=== PATIENT | male | born 1950 | race Caucasian/White ===

== ENCOUNTER 2016-09-22 08:16 | Observation (INO) | payer MEDICARE, OTHER ==
[2016-09-22] MEDS ORDERED: Ondansetron 4 MG/2 ML SDV IVPUSH ONE (09:01)
[2016-09-22] MEDS ORDERED: HYDROmorphone 0.5 MG/0.5 ML Syringe IVPUSH ONE (09:02)
--- NOTE | 2016-09-22 09:05 | EDM.PDOC ---
ED HPI GI/ABDOMINAL - General Chief Complaint: Abdominal Pain Stated Complaint: SEVER STOMACH PAIN AND BACK PAIN Time Seen by Provider: 09/22/16 09:03 Source: Reports: Patient, Family History Limitations: Reports: No limitations - History of Present Illness INITIAL COMMENTS - FREE TEXT/NARRATIVE: pt has been sick for about 1 week. He has been weaker and he has not been eating well. He developed the acute abdomanal pain about 3 am. He was nauseated and did vomit a couple of times. He normally has loose stools. He is rating his pain at a 5 at this time. Timing/Duration: Reports: Hour(s):, Improving Location: other (epigastric area.) Quality: Reports: fullness, stabbing, throbbing Associated Symptoms: Reports: diarrhea, loss of appetite - Related Data Allergies/ADRs: Allergies Allergy/AdvReac Type Severity Reaction Status Date / Time lisinopril Allergy Cough Verified 09/22/16 08:45 Home Meds: Home Meds Cyanocobalamin (Vitamin B12) [Vitamin B12] 1,000 mcg PO DAILY 09/22/16 [History] Dapsone 75 mg PO DAILY 09/22/16 [History] Insulin Isophane NPH, Human [HumuLIN N] 8 units SUBCUT ASDIRECTED 09/22/16 [ History] Lipase/Protease/Amylase [Zenpep Dr 40,000 Units Capsule] 68,000 units PO ASDIRECTED 09/22/16 [History] Losartan/Hydrochlorothiazide [Losartan-HCTZ 100-12.5 MG] 1 tab PO DAILY [History] Omeprazole 20 mg PO DAILY 09/22/16 [History] metFORMIN [Glucophage] 500 mg PO BIDMEALS 09/22/16 [History] Past Medical History Respiratory History: Reports: Asthma Gastrointestinal History: Reports: Celiac disease Endocrine/Metabolic History: Reports: Diabetes, type II Hematologic History: Reports: B12 deficiency - Infectious Disease History Infectious Disease History: Reports: Chicken pox, Measles, Mumps - Past Surgical History GI Surgical History: Reports: Other (see below) Other GI Surgeries/Procedures: whipple procedure Musculoskeletal Surgical History: Reports: Shoulder surgery Social & Family History - Tobacco Use Smoking Status *Q: Never Smoker - Caffeine Use Caffeine Use: Reports: None - Recreational Drug Use Recreational Drug Use: No ED ROS GENERAL - Review of Systems Review Of Systems: See Below Constitutional: Reports: decreased appetite, other (pt had a whipple for a large pancreatic cyst about 3 years ago. After the whipple he developed celiac disease and type 2 diabetes/ ) HEENT: Reports: No symptoms Respiratory: Reports: No Symptoms Cardiovascular: Reports: No symptoms Endocrine: Reports: fatigue GI/Abdominal: Reports: Abdominal pain, Decreased appetite : Reports: no symptoms Musculoskeletal: Reports: no symptoms Skin: Reports: no symptoms Neurological: Reports: No Symptoms Psychiatric: Reports: No symptoms ED EXAM, GI/ABD - Physical Exam Exam: See Below Text/Narrative:: pt is a post whipple procedure of 3 years for a large cyst in the pancreas. He developed acute mid upper abdomanal pain about 3 am. He vomited a couple of times. He has not been feeling well for 1-2 weeks. Exam Limited By: Other (pt is pale and appears mildly jaundiced.) General Appearance: alert, moderate distress Eyes: bilateral: normal appearance, EOMI Ears: normal TMs Nose: normal inspection Throat/Mouth: Normal inspection Head: atraumatic Neck: normal inspection Respiratory/Chest: no respiratory distress Cardiovascular: regular rate, rhythm GI/Abdominal: tenderness, other (pt has tenderness in the epigastric area. He has a soft abdoman otherwise. ) (Male) Exam: Deferred Rectal (Males) Exam: Deferred Back Exam: normal inspection Extremities: normal inspection Neurological: alert, oriented, normal cognition Psychiatric: normal affect Course - Vital Signs Last Recorded V/S: Last Vital Signs Temp 37.3 C 09/22/16 08:39 Pulse 85 09/22/16 15:14 Resp 16 09/22/16 08:39 BP 118/51 L 09/22/16 15:14 Pulse Ox 92 L 09/22/16 15:14 - Orders/Labs/Meds Orders: Active Orders 24 hr Category Date Time Status Iopamidol [Isovue-300 (61%)] Med 09/22/16 10:33 Active 100 ml IV . DIRECTED PRN Sodium Chloride 0.9% [Normal Saline] 1,000 ml Med 09/22/16 09:15 Active IV ASDIRECTED Sodium Chloride 0.9% [Normal Saline] 1,000 ml Med 09/22/16 15:45 Ordered IV ASDIRECTED Sodium Chloride 0.9% [Normal Saline] 75 ml Med 09/22/16 10:45 Active IV ASDIRECTED Sodium Chloride 0.9% [Saline Flush] Med 09/22/16 10:33 Active 10 ml FLUSH ONETIME PRN Medication Orders Sodium Chloride (Normal Saline) 1,000 mls @ 500 mls/hr IV ASDIRECTED TRES Last Admin: 09/22/16 09:12 Dose: 500 mls/hr Sodium Chloride (Normal Saline) 75 mls @ 3 mls/sec IV ASDIRECTED TRES Stop: 09/22/16 23:00 Sodium Chloride (Normal Saline) 1,000 mls @ 150 mls/hr IV ASDIRECTED TRES Iopamidol (Isovue-300 (61%)) 100 ml IV . DIRECTED PRN PRN Reason: RADIOLOGY EXAM Stop: 09/23/16 10:34 Sodium Chloride (Saline Flush) 10 ml FLUSH ONETIME PRN PRN Reason: per radiology protocol Stop: 09/22/16 23:00 Labs: Laboratory Tests 09/22/16 09/22/16 09/22/16 Range/Units 08:34 08:46 08:46 WBC 6.8 (4.5-11.0) K/uL RBC 3.16 L (4.30-5.90) M/uL Hgb 10.0 L (12.0-15.0) g/dL Hct 30.9 L (40.0-54.0) % MCV 98 (80-98) fL MCH 32 H (27-31) pg MCHC 32 (32-36) % Plt Count 271 (150-400) K/uL Neut % (Auto) 93 H (36-66) % Lymph % (Auto) 5 L (24-44) % [place] % (Auto) 2 (2-6) % Eos % (Auto) 0 L (2-4) % Baso % (Auto) 0 (0-1) % ESR (0-20) mm/hr Sodium 133 L (140-148) mmol/L Potassium 4.0 (3.6-5.2) mmol/L Chloride 99 L (100-108) mmol/L Carbon Dioxide 27 (21-32) mmol/L Anion Gap 11.0 (5.0-14.0) mmol/L BUN 26 H (7-18) mg/dL Creatinine 1.4 H (0.8-1.3) mg/dL Est Cr Clr Drug Dosing 47.21 mL/min Estimated GFR (MDRD) 50 L (>60) Glucose 235 H (74-106) mg/dL Calcium 8.1 L (8.5-10.1) mg/dL Iron (65-175) ug/dL TIBC (250-450) ug/dl % Saturation (20-55) % Total Bilirubin 3.3 H (0.2-1.0) mg/dL AST 553 H (15-37) U/L ALT 457 H (12-78) U/L Alkaline Phosphatase 454 H (46-116) U/L Total Protein 6.6 (6.4-8.2) g/dL Albumin 3.3 L (3.4-5.0) g/dL Globulin 3.3 (2.3-3.5) g/dL Albumin/Globulin Ratio 1.0 L (1.2-2.2) Amylase 36 (25-115) U/L Lipase 35 L (73-393) U/L Urine Color Urine Appearance Urine pH (4.5-8.0) Ur Specific [place] (1.008-1.030) Urine Protein (NEGATIVE) mg/dL Urine Glucose (UA) (NEGATIVE) mg/dL Urine Ketones (NEGATIVE) mg/dL Urine Occult Blood (NEGATIVE) Urine Nitrite (NEGAITVE) Urine Bilirubin (NEGATIVE) Urine Urobilinogen (NORMAL) mg/dL Ur Leukocyte Esterase (NEGATIVE) Urine RBC (0-5) Urine WBC (0-5) Ur Epithelial Cells Amorphous Sediment Urine Bacteria Urine Mucus Urine Other 09/22/16 09/22/16 09/22/16 Range/Units 09:02 09:06 10:35 WBC (4.5-11.0) K/uL RBC (4.30-5.90) M/uL Hgb (12.0-15.0) g/dL Hct (40.0-54.0) % MCV (80-98) fL MCH (27-31) pg MCHC (32-36) % Plt Count (150-400) K/uL Neut % (Auto) (36-66) % Lymph % (Auto) (24-44) % [place] % (Auto) (2-6) % Eos % (Auto) (2-4) % Baso % (Auto) (0-1) % ESR 26 H (0-20) mm/hr Sodium (140-148) mmol/L Potassium (3.6-5.2) mmol/L Chloride (100-108) mmol/L Carbon Dioxide (21-32) mmol/L Anion Gap (5.0-14.0) mmol/L BUN (7-18) mg/dL Creatinine (0.8-1.3) mg/dL Est Cr Clr Drug Dosing mL/min Estimated GFR (MDRD) (>60) Glucose (74-106) mg/dL Calcium (8.5-10.1) mg/dL Iron 79 (65-175) ug/dL TIBC 310 (250-450) ug/dl % Saturation 25 (20-55) % Total Bilirubin (0.2-1.0) mg/dL AST (15-37) U/L ALT (12-78) U/L Alkaline Phosphatase (46-116) U/L Total Protein (6.4-8.2) g/dL Albumin (3.4-5.0) g/dL Globulin (2.3-3.5) g/dL Albumin/Globulin Ratio (1.2-2.2) Amylase (25-115) U/L Lipase (73-393) U/L Urine Color Brown Urine Appearance Cloudy Urine pH 5.0 (4.5-8.0) Ur Specific [place] 1.010 (1.008-1.030) Urine Protein Negative (NEGATIVE) mg/dL Urine Glucose (UA) Normal (NEGATIVE) mg/dL Urine Ketones Negative (NEGATIVE) mg/dL Urine Occult Blood Negative (NEGATIVE) Urine Nitrite Negative (NEGAITVE) Urine Bilirubin Moderate (NEGATIVE) Urine Urobilinogen >=12 H (NORMAL) mg/dL Ur Leukocyte Esterase Small (NEGATIVE) Urine RBC Not seen (0-5) Urine WBC 0-5 (0-5) Ur Epithelial Cells Rare Amorphous Sediment Moderate Urine Bacteria Rare Urine Mucus Moderate Urine Other See note Meds: Medications Generic Name Dose Route Start Last Admin Trade Name Freq PRN Reason Stop Dose Admin Sodium Chloride 1,000 mls @ 500 mls/hr 09/22/16 09:15 09/22/16 09:12 Normal Saline IV 500 mls/hr ASDIRECTED TRES Administration Sodium Chloride 75 mls @ 3 mls/sec 09/22/16 10:45 Normal Saline IV 09/22/16 23:00 ASDIRECTED TRES Sodium Chloride 1,000 mls @ 150 mls/hr 09/22/16 15:45 Normal Saline IV ASDIRECTED TRES Iopamidol 100 ml 09/22/16 10:33 Isovue-300 (61%) IV 09/23/16 10:34 . DIRECTED PRN RADIOLOGY EXAM Sodium Chloride 10 ml 09/22/16 10:33 Saline Flush FLUSH 09/22/16 23:00 ONETIME PRN per radiology protocol Discontinued Medications Generic Name Dose Route Start Last Admin Trade Name Freq PRN Reason Stop Dose Admin Hydromorphone HCl 0.5 mg 09/22/16 09:02 09/22/16 09:13 Dilaudid IVPUSH 09/22/16 09:03 0.5 mg ONETIME ONE Administration Ondansetron HCl 4 mg 09/22/16 09:01 09/22/16 09:12 Zofran IVPUSH 09/22/16 09:02 4 mg ONETIME ONE Administration - Re-Assessments/Exams Free Text/Narrative Re-Assessment/Exam: 09/22/16 15:19 pt had a US which did not reveal the presence of a GB. The duct did not look wide on the US. He had a Cat scan of the abdoman which did not reveal a stone or wide duct, It also did not show GB present. Because of the jaundice He had a MRCP which did not show a definite stone or other abnormalities. 09/22/16 15:43 pt remains pain free at this time. Departure - Departure Time of Disposition: 15:22 Disposition: Admitted As Inpatient 64 Condition: fair Clinical Impression: Elevated liver enzymes, Jaundice, Anemia Referrals: PCP,None [Primary Care Provider] - Forms: ED Department Discharge Care Plan Goals: admit to Dr reeves - My Orders Last 24 Hours: My Active Orders 09/22/16 09:15 Sodium Chloride 0.9% [Normal Saline] 1,000 ml IV ASDIRECTED 09/22/16 10:33 Iopamidol [Isovue-300 (61%)] 100 ml IV . DIRECTED PRN Sodium Chloride 0.9% [Saline Flush] 10 ml FLUSH ONETIME PRN 09/22/16 10:45 Sodium Chloride 0.9% [Normal Saline] 75 ml IV ASDIRECTED 09/22/16 15:45 Sodium Chloride 0.9% [Normal Saline] 1,000 ml IV ASDIRECTED - Assessment/Plan Last 24 Hours: My Active Orders 09/22/16 09:15 Sodium Chloride 0.9% [Normal Saline] 1,000 ml IV ASDIRECTED 09/22/16 10:33 Iopamidol [Isovue-300 (61%)] 100 ml IV . DIRECTED PRN Sodium Chloride 0.9% [Saline Flush] 10 ml FLUSH ONETIME PRN 09/22/16 10:45 Sodium Chloride 0.9% [Normal Saline] 75 ml IV ASDIRECTED 09/22/16 15:45 Sodium Chloride 0.9% [Normal Saline] 1,000 ml IV ASDIRECTED
[2016-09-22] MEDS ORDERED: Sodium Chloride 0.9% 1,000 ML IV SCH ×2 (09:15→15:45)
--- NOTE | 2016-09-22 10:23 | US ---
Right upper quadrant ultrasound The liver is homogeneous. No focal hepatic lesions are demonstrated. The gallbladder is not distende d. It is difficult to differentiate a collapsed gallbladder with stones versus air within the bowel. There is no pain elicited with palpation of the right upper quadrant. The common bile duct is mildl y prominent measuring 9-10 mm. No ductal stones are seen. The pancreas is completely obscured by bow el gas. The right kidney measures 10.9 cm in length. There is no hydronephrosis. The IVC is patent. Impression: 1. Nonvisualization of the gallbladder as well as pancreas. There is likely inadequate fasting. Gall stones cannot be excluded. No pain with palpation of the gallbladder. 2. Mild common bile duct distention.
[2016-09-22] MEDS ORDERED: Iopamidol 612 MG/ML 100 ML Bottle IV PRN (10:33)
[2016-09-22] MEDS ORDERED: Sodium Chloride 0.9% 10 ML Syringe FLUSH PRN (10:33)
[2016-09-22] MEDS ORDERED: Sodium Chloride 0.9% 75 ML IV SCH (10:45)
--- NOTE | 2016-09-22 11:20 | CT ---
Abdomen pelvis CT. History: Abdominal pain. Elevated liver enzymes. Prior Whipple procedure. Technique: IV contrast was administered followed by axial imaging from the lung bases extending thro ugh the abdomen and pelvis. Coronal images were reconstructed. Total DLP: 607. Findings: Limited evaluation of the lower lung gannon demonstrates no abnormalities. The gallbladder is absent. The common bile duct is nondistended measuring 12 mm. There is mild promi nence of the intrahepatic ducts. The findings are likely within normal limits following cholecystect betty. No focal hepatic lesions are demonstrated. The remaining portion of the pancreas is atrophic. T here is mild prominence of the pancreatic duct. The spleen is normal in size. The adrenal glands are symmetric. The kidneys demonstrate symmetric excretion of contrast. There is a small cyst of the lo wer pole right kidney. There is no large or small bowel distention. There is moderate stool in the distal colon. There is n o abdominal or pelvic adenopathy. There is no ascites. The skeletal structures are unremarkable. Impression: 1. Prior Whipple procedure. Atrophy of the pancreas is noted. 2. Prior cholecystectomy. Mild prominence of the bile ducts. 3. No acute findings of the abdomen or pelvis.
--- NOTE | 2016-09-22 15:06 | MR ---
MRCP. History: Jaundice. Technique: Routine MRCP sequences. Findings: The liver is homogeneous. The liver is normal in size. There is normal signal throughout t he liver. The gallbladder is surgically absent. The common bile duct measures 8 mm in diameter. There are post surgical changes consistent with a Whipple procedure. There is atrophy of the pancreas. The pancreat ic duct is dilated measuring 8-9 mm. There is no adenopathy. There is no free fluid. There are small cysts of the kidneys. Impression: 1. Postsurgical changes consistent with prior Whipple procedure. 2. Diffuse atrophy of the pancreas. There is dilatation of the pancreatic duct. No mass is seen. 3. Prior cholecystectomy. There is no dilatation of the common bile duct.
--- NOTE | 2016-09-22 16:34 | PCM.HP ---
H&P History of Present Illness - General Date of Service: 09/22/16 Admit Problem/Dx: Admission Diagnosis/Problem Admission Diagnosis/Problem Abdominal pain Source of Information: Patient, Family, Provider History Limitations: Reports: No limitations - History of Present Illness Initial Comments - Free Text/Narative: Chayito presents to the emergency room today after an episode of severe epigastric/ right upper cord abdominal pain that woke him from sleep around 2 AM. This was a crampy pain that came and went in waves without an obvious trigger. He did take some ibuprofen at home but this did not help his pain. He did have one episode of vomiting and some nausea this morning. When the pain persisted and was accompanied by the nausea and vomiting he thought he better get it checked out. He has not felt very well for the past week with a decrease in his appetite and energy. He has had some chills but none in the last few days. No obvious sick contacts. No change in bowel function. No change in bladder habits. No cough or shortness of breath. No new medications her medication changes. Workup in the emergency room revealed elevated bilirubin, alkaline phosphatase as well as AST and ALT. This prompted a right upper quadrant ultrasound which was normal which prompted a CT which showed evidence for previous Whipple procedure but no acute findings. An MRI was completed with MRCP protocol. This did not show acute pathology either. Planning admit for observation and repeat testing. Middle Abdomen Pain Score (Numeric/FACES): 8 - Related Data Allergies/Adverse Reactions: Allergies Allergy/AdvReac Type Severity Reaction Status Date / Time lisinopril AdvReac Cough Verified 09/22/16 17:05 Home Medications: Home Meds Cyanocobalamin (Vitamin B12) [Vitamin B12] 1,000 mcg PO DAILY 09/22/16 [History] Dapsone 75 mg PO DAILY 09/22/16 [History] Insulin Isophane NPH, Human [HumuLIN N] 8 units SUBCUT ASDIRECTED 09/22/16 [ History] Lipase/Protease/Amylase [Zenpep Dr 40,000 Units Capsule] 60,000 units PO TID [History] Losartan/Hydrochlorothiazide [Losartan-HCTZ 100-25 MG] 1 tab PO DAILY 09/22/16 [ History] Omeprazole 20 mg PO BID 09/22/16 [History] metFORMIN [Glucophage] 500 mg PO BIDMEALS 09/22/16 [History] Past Medical History Respiratory History: Reports: Asthma Gastrointestinal History: Reports: Celiac disease Endocrine/Metabolic History: Reports: Diabetes, type II Hematologic History: Reports: B12 deficiency - Infectious Disease History Infectious Disease History: Reports: Chicken pox, Measles, Mumps - Past Surgical History GI Surgical History: Reports: Other (see below) Other GI Surgeries/Procedures: whipple procedure Musculoskeletal Surgical History: Reports: Shoulder surgery Social & Family History - Family History Oncologic: Denies: Pancreatic - Tobacco Use Smoking Status *Q: Never Smoker - Caffeine Use Caffeine Use: Reports: None - Alcohol Use Alcohol Use History: No - Recreational Drug Use Recreational Drug Use: No H&P Review of Systems - Review of Systems: Review Of Systems: See Below Free Text/Narrative: A complete 12 point review of systems was obtained. Pertinent positives and negatives are noted in the history of present illness. All other systems were reviewed and were negative except as noted. Exam - Exam Exam: See Below - Vital Signs Vital Signs: Last Vital Signs Temp 37.3 C 09/22/16 08:39 Pulse 85 09/22/16 15:14 Resp 16 09/22/16 08:39 BP 118/51 L 09/22/16 15:14 Pulse Ox 92 L 09/22/16 15:14 Weight: 77.111 kg - Exam Quality Assessment: No: supplemental oxygen General: alert, oriented, cooperative. No: mild distress HEENT: Conjunctiva clear, Mucosa moist & pink, Scleral icterus Neck: supple, trachea midline. No: lymphadenopathy, thyromegaly Lungs: Clear to auscultation, Normal respiratory effort Cardiovascular: regular rate, regular rhythm, normal S1, normal S2 Abdomen: normal bowel sounds, soft. No: distention, tenderness, mass Back Exam: normal inspection, full range of motion Extremities: normal inspection, normal pulses. No: cyanosis, edema Skin: warm, dry, intact Neuro Extensive - Mental Status: alert, oriented x3, nl response to commands Neuro Extensive - Motor, Sensory, Reflexes: CN II-XII intact. No: dysarthria, abnormal motor, tremor Psychiatric: alert, normal affect - Patient Data Lab Results last 24 hrs: Laboratory Results - last 24 hr 09/22/16 09/22/16 09/22/16 Range/Units 08:34 08:46 08:46 WBC 6.8 (4.5-11.0) K/uL RBC 3.16 L (4.30-5.90) M/uL Hgb 10.0 L (12.0-15.0) g/dL Hct 30.9 L (40.0-54.0) % MCV 98 (80-98) fL MCH 32 H (27-31) pg MCHC 32 (32-36) % Plt Count 271 (150-400) K/uL Neut % (Auto) 93 H (36-66) % Lymph % (Auto) 5 L (24-44) % Branch % (Auto) 2 (2-6) % Eos % (Auto) 0 L (2-4) % Baso % (Auto) 0 (0-1) % ESR (0-20) mm/hr Sodium 133 L (140-148) mmol/L Potassium 4.0 (3.6-5.2) mmol/L Chloride 99 L (100-108) mmol/L Carbon Dioxide 27 (21-32) mmol/L Anion Gap 11.0 (5.0-14.0) mmol/L BUN 26 H (7-18) mg/dL Creatinine 1.4 H (0.8-1.3) mg/dL Est Cr Clr Drug Dosing 47.21 mL/min Estimated GFR (MDRD) 50 L (>60) Glucose 235 H (74-106) mg/dL Calcium 8.1 L (8.5-10.1) mg/dL Iron (65-175) ug/dL TIBC (250-450) ug/dl % Saturation (20-55) % Total Bilirubin 3.3 H (0.2-1.0) mg/dL AST 553 H (15-37) U/L ALT 457 H (12-78) U/L Alkaline Phosphatase 454 H (46-116) U/L Total Protein 6.6 (6.4-8.2) g/dL Albumin 3.3 L (3.4-5.0) g/dL Globulin 3.3 (2.3-3.5) g/dL Albumin/Globulin Ratio 1.0 L (1.2-2.2) Amylase 36 (25-115) U/L Lipase 35 L (73-393) U/L Urine Color Urine Appearance Urine pH (4.5-8.0) Ur Specific [place] (1.008-1.030) Urine Protein (NEGATIVE) mg/dL Urine Glucose (UA) (NEGATIVE) mg/dL Urine Ketones (NEGATIVE) mg/dL Urine Occult Blood (NEGATIVE) Urine Nitrite (NEGAITVE) Urine Bilirubin (NEGATIVE) Urine Urobilinogen (NORMAL) mg/dL Ur Leukocyte Esterase (NEGATIVE) Urine RBC (0-5) Urine WBC (0-5) Ur Epithelial Cells Amorphous Sediment Urine Bacteria Urine Mucus Urine Other 09/22/16 09/22/16 09/22/16 Range/Units 09:02 09:06 10:35 WBC (4.5-11.0) K/uL RBC (4.30-5.90) M/uL Hgb (12.0-15.0) g/dL Hct (40.0-54.0) % MCV (80-98) fL MCH (27-31) pg MCHC (32-36) % Plt Count (150-400) K/uL Neut % (Auto) (36-66) % Lymph % (Auto) (24-44) % Branch % (Auto) (2-6) % Eos % (Auto) (2-4) % Baso % (Auto) (0-1) % ESR 26 H (0-20) mm/hr Sodium (140-148) mmol/L Potassium (3.6-5.2) mmol/L Chloride (100-108) mmol/L Carbon Dioxide (21-32) mmol/L Anion Gap (5.0-14.0) mmol/L BUN (7-18) mg/dL Creatinine (0.8-1.3) mg/dL Est Cr Clr Drug Dosing mL/min Estimated GFR (MDRD) (>60) Glucose (74-106) mg/dL Calcium (8.5-10.1) mg/dL Iron 79 (65-175) ug/dL TIBC 310 (250-450) ug/dl % Saturation 25 (20-55) % Total Bilirubin (0.2-1.0) mg/dL AST (15-37) U/L ALT (12-78) U/L Alkaline Phosphatase (46-116) U/L Total Protein (6.4-8.2) g/dL Albumin (3.4-5.0) g/dL Globulin (2.3-3.5) g/dL Albumin/Globulin Ratio (1.2-2.2) Amylase (25-115) U/L Lipase (73-393) U/L Urine Color Brown Urine Appearance Cloudy Urine pH 5.0 (4.5-8.0) Ur Specific [place] 1.010 (1.008-1.030) Urine Protein Negative (NEGATIVE) mg/dL Urine Glucose (UA) Normal (NEGATIVE) mg/dL Urine Ketones Negative (NEGATIVE) mg/dL Urine Occult Blood Negative (NEGATIVE) Urine Nitrite Negative (NEGAITVE) Urine Bilirubin Moderate (NEGATIVE) Urine Urobilinogen >=12 H (NORMAL) mg/dL Ur Leukocyte Esterase Small (NEGATIVE) Urine RBC Not seen (0-5) Urine WBC 0-5 (0-5) Ur Epithelial Cells Rare Amorphous Sediment Moderate Urine Bacteria Rare Urine Mucus Moderate Urine Other See note Result Diagrams: 09/22/16 08:34 09/22/16 08:46 Imaging Impressions last 24 hrs: CT scan of the abdomen and pelvis - these images were personally reviewed - status post Whipple procedure, status post cholecystectomy. Pancreas is atrophied. No evidence for abscess, infection or acute process. Right upper quadrant ultrasound - similar to CT scan, no acute findings MRCP - no visible stone or significant ductal dilation other than mild dilation of the pancreatic duct. *Q Meaningful Use (ADM) - VTE *Q VTE Criteria *Q: - Stroke *Q Stroke Criteria *Q: - AMI *Q AMI Criteria *Q: - Problem List (1) Right upper quadrant abdominal pain SNOMED Code(s): 742014121 ICD Code: R10.11 - RIGHT UPPER QUADRANT PAIN Status: Acute Current Visit : Yes (2) Transaminitis SNOMED Code(s): 459431476 ICD Code: R74.0 - NONSPEC ELEV OF LEVELS OF TRANSAMNS & LACTIC ACID DEHYDRGNSE Status: Acute Current Visit: Yes (3) Jaundice SNOMED Code(s): 57427850 ICD Code: R17 - UNSPECIFIED JAUNDICE Status: Acute Current Visit: Yes Problem List Initiated/Reviewed/Updated: Yes Orders Last 24hrs: Active Orders 24 hr Category Date Time Status Patient Status Manage Transfer [TRANSFER] Routine ADT 09/22/16 16:23 Ordered Iopamidol [Isovue-300 (61%)] Med 09/22/16 10:33 Active 100 ml IV . DIRECTED PRN Sodium Chloride 0.9% [Normal Saline] 1,000 ml Med 09/22/16 09:15 Active IV ASDIRECTED Sodium Chloride 0.9% [Normal Saline] 1,000 ml Med 09/22/16 15:45 Active IV ASDIRECTED Sodium Chloride 0.9% [Normal Saline] 75 ml Med 09/22/16 10:45 Active IV ASDIRECTED Sodium Chloride 0.9% [Saline Flush] Med 09/22/16 10:33 Active 10 ml FLUSH ONETIME PRN Resuscitation Status Routine Resus Stat 09/22/16 16:25 Ordered Medication Orders Sodium Chloride (Normal Saline) 1,000 mls @ 500 mls/hr IV ASDIRECTED TRES Last Admin: 09/22/16 09:12 Dose: 500 mls/hr Sodium Chloride (Normal Saline) 75 mls @ 3 mls/sec IV ASDIRECTED TRES Stop: 09/22/16 23:00 Sodium Chloride (Normal Saline) 1,000 mls @ 150 mls/hr IV ASDIRECTED TRES Iopamidol (Isovue-300 (61%)) 100 ml IV . DIRECTED PRN PRN Reason: RADIOLOGY EXAM Stop: 09/23/16 10:34 Sodium Chloride (Saline Flush) 10 ml FLUSH ONETIME PRN PRN Reason: per radiology protocol Stop: 09/22/16 23:00 Assessment/Plan Comment:: Assessment and plan - Right upper quadrant abdominal pain with transaminitis - patient tells a pretty good story for having passed a common duct stone. No significant elevation of pancreatic enzymes because of atrophy. Dr. does appear little dilated. Ultrasound, CT and MRI did not reveal evidence for additional stones or acute pathology. No strong evidence to suggest infection. No obvious obstructing mass or lesion based on any of the advanced imaging. No evidence for cirrhosis based on imaging. -Pain control -repeat labs in the morning Transaminitis with elevated bilirubin - Differential would include having passed a stone versus medication side effect versus occult infection. At this point historian sure sounds convincing for having passed a small stone from the biliary tree. Currently pain-free and doing well. -Symptomatic management -Labs in the morning Status post Whipple for obstructing cyst - No evidence for acute pathology based on imaging. Complicated by the development of celiac disease. 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
[2016-09-22] MEDS ORDERED: oxyCODONE 5 MG Tab PO PRN (16:57)
[2016-09-22] MEDS ORDERED: Ondansetron 4 MG Tab.DIS PO PRN (16:57)
[2016-09-22] MEDS ORDERED: HYDROmorphone 0.5 MG/0.5 ML Syringe IVPUSH PRN (16:57)
[2016-09-22] MEDS ORDERED: Polyethylene Glycol 3350 Powder 17 GM Packet PO PRN (16:57)
[2016-09-22] MEDS ORDERED: Acetaminophen 325 MG Tab PO PRN (16:57)
[2016-09-22] MEDS ORDERED: Ondansetron 4 MG/2 ML SDV IV PRN (16:57)
[2016-09-22] MEDS ORDERED: LORazepam 2 MG/ML MDV IVPUSH PRN (16:57)
[2016-09-22] MEDS ORDERED: INSULIN ISOPHANE NPH HUMAN SUBCUT SCH ×2 (16:57→21:00)
[2016-09-22] MEDS ORDERED: Non-Formulary Medication 1 Each (Metformin [Glucophage] 500 MG) PO SCH (17:00)
[2016-09-22] MEDS: PROTEASE PO SCH (18:22)
[2016-09-22] MEDS: AMYLASE PO SCH (18:22)
[2016-09-22] MEDS: LIPASE PO SCH (18:22)
[2016-09-22] MEDS: METFORMIN 500 MG PO SCH (18:23)
[2016-09-23] MEDS ORDERED: OMEPRAZOLE 20MG CAP (PTOM) PO SCH (07:30)
[2016-09-23] MEDS ORDERED: Pantoprazole 40 MG Tab.CR PO SCH (07:30)
[2016-09-23 08:04] VITALS: BP 103/66
[2016-09-23] MEDS: LIPASE PO SCH (08:26)
[2016-09-23] MEDS: PROTEASE PO SCH (08:26)
[2016-09-23] MEDS: AMYLASE PO SCH (08:26)
[2016-09-23] MEDS: METFORMIN 500 MG PO SCH (08:26)
[2016-09-23] MEDS ORDERED: Non-Formulary Medication 1 Each (Cyanocobalamin (Vitamin B12) [Vitamin B12] 1,000 MCG) PO SCH (09:00)
[2016-09-23] MEDS ORDERED: Non-Formulary Medication 1 Each (Omeprazole [Omeprazole] 20 MG) PO SCH (09:00)
[2016-09-23] MEDS ORDERED: DAPSONE 25 MG PO SCH (09:00)
[2016-09-23] MEDS ORDERED: DAPSONE 75 MG PO SCH (09:00)
[2016-09-23] MEDS ORDERED: Cyanocobalamin (Vitamin B12) 1,000 MCG Tab PO SCH (09:00)
[2016-09-23] MEDS ORDERED: HCTZ PO SCH (09:00)
[2016-09-23] MEDS ORDERED: LOSARTAN PO SCH (09:00)
[2016-09-23] MEDS ORDERED: Losartan 50 MG Tab PO SCH (09:00)
[2016-09-23] MEDS ORDERED: HUMULIN N SUBCUT SCH (09:00)
[2016-09-23] MEDS ORDERED: Hydrochlorothiazide 12.5 MG Cap PO SCH (09:00)
--- NOTE | 2016-09-23 09:38 | PCM.DCSUM1 ---
Discharge Summary - Hospital Course Brief History: 66-year-old male with a history of a Whipple procedure who presented with epigastric abdominal pain and vomiting. He was admitted for observation with laboratory studies noting elevated bilirubin, ALK, AST, ALT. - Discharge Data Discharge Date: 09/23/16 Discharge Disposition: Home, Self-Care 01 Condition: Good - Discharge Diagnosis/Problem(s) (1) Right upper quadrant abdominal pain SNOMED Code(s): 083753192 ICD Code: R10.11 - RIGHT UPPER QUADRANT PAIN Status: Acute (2) Transaminitis SNOMED Code(s): 849142678 ICD Code: R74.0 - NONSPEC ELEV OF LEVELS OF TRANSAMNS & LACTIC ACID DEHYDRGNSE Status: Acute (3) Jaundice SNOMED Code(s): 16224349 ICD Code: R17 - UNSPECIFIED JAUNDICE Status: Acute (4) Choledocholithiasis SNOMED Code(s): 685619677 ICD Code: K80.50 - CALCULUS OF BILE DUCT W/O CHOLANGITIS OR CHOLECYST W/O OBST Status: Suspected - Patient Summary/Data Hospital Course: Chayito presented to the emergency room after an episode of right upper cord current abdominal pain and vomiting. Workup in the emergency room revealed elevated bilirubin, ALK, AST, ALT. Imaging was unremarkable other than the noted removal of his gallbladder and evidence for previous Whipple procedure. There is no evidence for stones in the biliary tree. His story was very consistent with having passed a biliary stone. He was admitted to the hospital for observation. The MRCP did not show any evidence for a biliary stone. Overnight he has not had any pain and feels well. He did not have a significant fevers. His white blood cell count did bump from the time of admission. His bilirubin also jono from the time of admission but his other hepatic panel tests have all improved by at least 50%. Clinically he feels well and has tolerated a regular diet. I believe he is safe for discharge home at this time. No additional stones were identified. No other cause for his symptoms and abnormal laboratory test was identified. He will followup if symptoms return. He has not yet established local primary care. - Patient Instructions Diet, Other: Gluten Free Diet Activity: As Tolerated Driving: May Drive Today Showering/Bathing: May Shower Notify Provider of: Fever, Increased Pain, Nausea and/or Vomiting Other/Special Instructions: 1. You were in the hospital for observation after an episode of abdominal pain and vomiting. You had elevated levels of several liver profile tests including bilirubin, alkaline phosphatase, AST and ALT. Your clinical history and laboratory studies fit very well with you having passed a stone from the biliary tree to the common bile duct where it became lodged temporarily. The stone has passed into the intestine in the MRI test to look at the liver, pancreas and associated ducts that drain these organs did not show any residual stones.no additional workup or treatment is needed at this time unless your symptoms return. There are no restrictions with your diet or activity after hospital discharge. 2. Please seek medical attention if you develop fever greater than 101, nausea with vomiting or severe abdominal pain. 3. I will be available through the hospital delimber operator until Thursday night if you have difficulties after hospital discharge. - Discharge Plan Home Medications: Home Meds Cyanocobalamin (Vitamin B12) [Vitamin B12] 1,000 mcg PO DAILY 09/22/16 [History] Dapsone 75 mg PO DAILY 09/22/16 [History] Insulin Isophane NPH, Human [HumuLIN N] 8 units SUBCUT ASDIRECTED 09/22/16 [ History] Lipase/Protease/Amylase [Zenpep Dr 40,000 Units Capsule] 60,000 units PO TID [History] Losartan/Hydrochlorothiazide [Losartan-HCTZ 100-25 MG] 1 tab PO DAILY 09/22/16 [ History] Omeprazole 20 mg PO BID 09/22/16 [History] metFORMIN [Glucophage] 500 mg PO BIDMEALS 09/22/16 [History] Patient Handouts: Nausea, Adult Referrals: PCP,None [Primary Care Provider] - (establish local primary care if you have persistent or recurrent symptoms) - Discharge Summary/Plan Comment DC Time >30 min.: No (25) - Patient Data Vitals - Most Recent: Last Vital Signs Temp 37.9 C 09/23/16 07:00 Pulse 90 09/23/16 07:00 Resp 18 09/23/16 07:00 BP 103/66 09/23/16 07:00 Pulse Ox 91 L 09/23/16 07:00 Weight - Most Recent: 77.111 kg I&O - Last 24 hours: Intake & Output 09/22/16 09/23/16 09/23/16 22:59 06:59 14:59 Intake Total 240 Balance 240 Lab Results - Last 24 hrs: Laboratory Results - last 24 hr 09/23/16 09/23/16 Range/Units 04:45 04:45 WBC 18.5 H (4.5-11.0) K/uL RBC 2.96 L (4.30-5.90) M/uL Hgb 9.4 L (12.0-15.0) g/dL Hct 28.6 L (40.0-54.0) % MCV 97 (80-98) fL MCH 32 H (27-31) pg MCHC 33 (32-36) % Plt Count 276 (150-400) K/uL Sodium 135 L (140-148) mmol/L Potassium 4.0 (3.6-5.2) mmol/L Chloride 102 (100-108) mmol/L Carbon Dioxide 25 (21-32) mmol/L Anion Gap 12.0 (5.0-14.0) mmol/L BUN 25 H (7-18) mg/dL Creatinine 1.3 (0.8-1.3) mg/dL Est Cr Clr Drug Dosing 50.85 mL/min Estimated GFR (MDRD) 55 L (>60) Glucose 108 H (74-106) mg/dL Calcium 7.8 L (8.5-10.1) mg/dL Total Bilirubin 7.4 H D (0.2-1.0) mg/dL AST 216 H (15-37) U/L ALT 381 H (12-78) U/L Alkaline Phosphatase 370 H (46-116) U/L Total Protein 5.9 L (6.4-8.2) g/dL Albumin 2.8 L (3.4-5.0) g/dL Globulin 3.1 (2.3-3.5) g/dL Albumin/Globulin Ratio 0.9 L (1.2-2.2) Med Orders - Current: Current Medications Acetaminophen (Tylenol) 650 mg PO Q4H PRN PRN Reason: Pain (Mild 1-3)/fever Cyanocobalamin (Vitamin B12) 1,000 mcg PO DAILY TRES Last Admin: 09/23/16 08:29 Dose: 1,000 mcg Hydromorphone HCl (Dilaudid) 0.5 - 1 mg IVPUSH Q2H PRN PRN Reason: Pain (severe 7-10) Lorazepam (Ativan) 0.5 - 1 mg IVPUSH Q4H PRN PRN Reason: Nausea/Vomiting Metformin HCl (Glucophage) 500 mg PO BIDMEALS [facility] Last Admin: 09/23/16 08:26 Dose: 500 mg (Lipase/Protease/Amylase [Zenpep Dr 20,000 Units Capsule ] *Pom* 60,000 units PO TIDMEALS [facility] Last Admin: 09/23/16 08:26 Dose: 60,000 units Ondansetron HCl (Zofran Odt) 4 mg PO Q6H PRN PRN Reason: Nausea able to take PO Ondansetron HCl (Zofran) 4 mg IV Q6H PRN PRN Reason: Nausea/Vomiting Oxycodone HCl (Oxycodone) 5 mg PO Q4H PRN PRN Reason: Pain (moderate 4-6) Dapsone 25mg Tab ( (Ptom)) 0 each PO DAILY [facility] Last Admin: 09/23/16 08:28 Dose: 75 each Omeprazole 20mg Cap ((Ptom)) 0 each PO ACBREAKFAST [facility] Last Admin: 09/23/16 08:16 Dose: 1 each Losartan/Hctz 100/ (25mg (Ptom)) 0 each PO DAILY [facility] Last Admin: 09/23/16 08:29 Dose: 1 each Humulin N (Ptom) 8 each SUBCUT BID [facility] Last Admin: 09/23/16 08:33 Dose: 8 each Polyethylene Glycol (Miralax) 17 gm PO DAILY PRN PRN Reason: Constipation Discontinued Medications Hydromorphone HCl (Dilaudid) 0.5 mg IVPUSH ONETIME ONE Stop: 09/22/16 09:03 Last Admin: 09/22/16 09:13 Dose: 0.5 mg Sodium Chloride (Normal Saline) 1,000 mls @ 500 mls/hr IV ASDIRECTED [facility] Last Admin: 09/22/16 09:12 Dose: 500 mls/hr Sodium Chloride (Normal Saline) 75 mls @ 3 mls/sec IV ASDIRECTED [facility] Stop: 09/22/16 23:00 Sodium Chloride (Normal Saline) 1,000 mls @ 150 mls/hr IV ASDIRECTED [facility] Iopamidol (Isovue-300 (61%)) 100 ml IV . DIRECTED PRN PRN Reason: RADIOLOGY EXAM Stop: 09/23/16 10:34 Non-Formulary Medication (Insulin Isophane Nph, Human [Humulin N]) 8 units SUBCUT ASDIRECTED TRES Non-Formulary Medication (Insulin Isophane Nph, Human [Humulin N]) 8 units SUBCUT BID TRES Last Admin: 09/22/16 21:12 Dose: Not Given Ondansetron HCl (Zofran) 4 mg IVPUSH ONETIME ONE Stop: 09/22/16 09:02 Last Admin: 09/22/16 09:12 Dose: 4 mg Sodium Chloride (Saline Flush) 10 ml FLUSH ONETIME PRN PRN Reason: per radiology protocol Stop: 09/22/16 23:00 *Q Meaningful Use (DIS) - VTE *Q VTE Criteria *Q: - Stroke *Q Stroke Criteria *Q: - AMI *Q AMI Criteria *Q:
== END 2016-09-23 10:10 | disposition home or self-care (01) ==
LOC: JP.ED 08:16 → JP.MS 16:23
PROVIDERS: ADMIT Internal Medicine; ATTEND Internal Medicine
DX: R10.11 Right upper quadrant pain (principal); R74.0 Nonspecific elevation of levels of transaminase and lactic acid dehydrogenase [LDH]; R17 Unspecified jaundice; K91.2 Postsurgical malabsorption, not elsewhere classified; Y83.2 Surgical operation with anastomosis, bypass or graft as the cause of abnormal reaction of the patient, or of later complication, without mention of misadventure at the time of the procedure; D64.9 Anemia, unspecified; E11.9 Type 2 diabetes mellitus without complications; Z79.4 Long term (current) use of insulin; J45.909 Unspecified asthma, uncomplicated; E53.8 Deficiency of other specified B group vitamins; Z79.899 Other long term (current) drug therapy; Z88.8 Allergy status to other drugs, medicaments and biological substances
CPT/HCPCS: 36415; 74177; 74181; 76705; 80053; 81001; 82150; 82962; 83550; 83690; 85025; 85027; 85651; 96361; 96374; 96375; 99285; A9270; G0378; J1170; J2405; J7040; 99217; 99220

== ENCOUNTER 2023-01-24 16:10 | Emergency (ER) | payer MEDICARE ==
[2023-01-24 16:29] VITALS: BP 130/69; PULSE 65
[2023-01-24] MEDS ORDERED: Lidocaine 1% with EPINEPHrine 1:100,000 50 ML MDV INJECT ONE (17:30)
[2023-01-24] MEDS ORDERED: Diphtheria,Pertussis(Acell),Tetanus Vaccine 0.5 ML Syringe IM ONE (18:18)
== END 2023-01-24 18:47 | disposition home or self-care (01) ==
LOC: JP.ED 16:10
DX: S61.012A Laceration without foreign body of left thumb without damage to nail, initial encounter (principal); J45.909 Unspecified asthma, uncomplicated; E11.9 Type 2 diabetes mellitus without complications; Z79.4 Long term (current) use of insulin; Z88.8 Allergy status to other drugs, medicaments and biological substances; W45.8XXA Other foreign body or object entering through skin, initial encounter
CPT/HCPCS: 12002; 73130-26-LT; 73130-LT; 90471; 90715; 99283; 99283-25